=== PATIENT | female | born 1980 | race Two or more races ===

== ENCOUNTER 2020-11-23 15:49 | Emergency (ER) | payer SELFPAY ==
[~2020-11-23] VITALS: Ht 170.2 cm; Wt 90.7 kg
[2020-11-23 15:54] VITALS: BP 139/83
== END 2020-11-23 21:24 | disposition home or self-care (01) ==
LOC: ER 15:49
DX: U07.1 COVID-19 (principal)
CPT/HCPCS: 36415; 71046; 87426